=== PATIENT | female | born 1975 | race Hispanic/Latino ===

== ENCOUNTER → 2023-12-12 09:28 | Outpatient (REF) | payer OTHER, SELFPAY ==
[2023-12-12 12:55] LABS: ALT (SGPT) 19 U/L (0-35); AST (SGOT) 17 U/L (14-36); Albumin 3.9 g/dl (3.5-5.0); Alkaline Phosphatase 74 U/L (38-126); Blood Urea Nitrogen 12 mg/dl (7-17); Calcium 9.5 mg/dl (8.4-10.2); Carbon Dioxide 23 mmol/L (22-30); Chloride 104 mmol/L (98-107); Glucose 98 mg/dl (70-99); Potassium 4.2 mmol/L (3.5-5.1); Sodium 134 mmol/L (135-145); Total Bilirubin 0.6 mg/dl (0.2-1.3); Total Protein 6.7 g/dl (6.3-8.2); eGFR > 60.00
[2023-12-12 12:57] LABS: Glycohemoglobin (HgbA1c) 6.8 % (4.0-5.6)
== END ==
LOC: CLINIC 09:28
PROVIDERS: ATTENDING PHYSICIAN Nurse Practitioner Adult Health
DX: E11.9 Type 2 diabetes mellitus without complications (principal)
CPT/HCPCS: 36415; 80053; 83036

== ENCOUNTER → 2024-03-18 08:30 | Outpatient (REF) | payer OTHER, SELFPAY ==
[2024-03-18 10:31] LABS: Microalbumin, Random Urine 0.9 mg/dl (0.6-1.7); Microalbumin/creatinine Ratio 66.2 mg/g
[2024-03-18 10:38] LABS: ALT (SGPT) 21 U/L (0-35); AST (SGOT) 21 U/L (14-36); Alkaline Phosphatase 72 U/L (38-126); Blood Urea Nitrogen 13 mg/dl (7-17); Calcium 9.1 mg/dl (8.4-10.2); Carbon Dioxide 25 mmol/L (22-30); Chloride 100 mmol/L (98-107); Glucose 95 mg/dl (70-99); Potassium 4.1 mmol/L (3.5-5.1); Sodium 138 mmol/L (135-145); Total Bilirubin 0.5 mg/dl (0.2-1.3); Total Protein 6.5 g/dl (6.3-8.2); eGFR > 60.00
[2024-03-18 12:21] LABS: Glycohemoglobin (HgbA1c) 6.3 % (4.0-5.6)
== END ==
LOC: REG 08:30
PROVIDERS: ATTENDING PHYSICIAN Nurse Practitioner Adult Health
DX: I10 Essential (primary) hypertension (principal); E11.9 Type 2 diabetes mellitus without complications
CPT/HCPCS: 36415; 80053; 82043; 82570; 83036

== ENCOUNTER → 2024-06-19 09:05 | Outpatient (REF) | payer OTHER, SELFPAY ==
[2024-06-19 10:42] LABS: ALT (SGPT) 26 U/L (0-35); AST (SGOT) 23 U/L (14-36); Albumin 4.1 g/dl (3.5-5.0); Alkaline Phosphatase 63 U/L (38-126); Blood Urea Nitrogen 10 mg/dl (7-17); Calcium 8.9 mg/dl (8.4-10.2); Carbon Dioxide 27 mmol/L (22-30); Chloride 97 mmol/L (98-107); Glucose 107 mg/dl (70-99); HDL Cholesterol 40 mg/dl; LDL Cholesterol, Calculated 86 mg/dl; Potassium 3.8 mmol/L (3.5-5.1); Sodium 135 mmol/L (135-145); Total Bilirubin 0.7 mg/dl (0.2-1.3); Total Cholesterol 150 mg/dl (50-199); Total Protein 6.6 g/dl (6.3-8.2); Triglyceride 121 mg/dl (10-149); Very Low Density Lipoprotein 24 mg/dl (0-30); eGFR > 60.00
[2024-06-19 11:52] LABS: Glycohemoglobin (HgbA1c) 6.9 % (4.0-5.6)
== END ==
LOC: CLINIC 09:05
PROVIDERS: ATTENDING PHYSICIAN Nurse Practitioner Adult Health
DX: E11.9 Type 2 diabetes mellitus without complications (principal)
CPT/HCPCS: 80053; 80061; 83036

== ENCOUNTER → 2024-09-16 08:07 | Outpatient (REF) | payer OTHER, SELFPAY ==
[2024-09-16 09:31] LABS: ALT (SGPT) 30 U/L (0-35); AST (SGOT) 22 U/L (14-36); Albumin 4.1 g/dl (3.5-5.0); Alkaline Phosphatase 83 U/L (38-126); Blood Urea Nitrogen 15 mg/dl (7-17); Carbon Dioxide 24 mmol/L (22-30); Chloride 99 mmol/L (98-107); Glucose 141 mg/dl (70-99); Potassium 4.4 mmol/L (3.5-5.1); Sodium 134 mmol/L (135-145); Total Bilirubin 0.6 mg/dl (0.2-1.3); Total Protein 6.8 g/dl (6.3-8.2); eGFR > 60.00
[2024-09-16 10:47] LABS: Glycohemoglobin (HgbA1c) 7.3 % (4.0-5.6)
[2024-09-16 11:53] LABS: Calcium 9.7 mg/dl (8.4-10.2)
== END ==
LOC: CLINIC 08:07
PROVIDERS: ATTENDING PHYSICIAN Nurse Practitioner Adult Health
DX: I10 Essential (primary) hypertension (principal); E11.9 Type 2 diabetes mellitus without complications
CPT/HCPCS: 36415; 80053; 83036

== ENCOUNTER → 2024-12-25 07:24 | Outpatient (REF) | payer OTHER, SELFPAY ==
[2024-12-25 09:18] LABS: ALT (SGPT) 19 U/L (0-35); AST (SGOT) 16 U/L (14-36); Albumin 3.9 g/dl (3.5-5.0); Alkaline Phosphatase 67 U/L (38-126); Blood Urea Nitrogen 10 mg/dl (7-17); Carbon Dioxide 25 mmol/L (22-30); Chloride 105 mmol/L (98-107); Glucose 116 mg/dl (70-99); Potassium 4.2 mmol/L (3.5-5.1); Sodium 137 mmol/L (135-145); Total Bilirubin 0.7 mg/dl (0.2-1.3); Total Protein 6.5 g/dl (6.3-8.2); eGFR > 60.00
[2024-12-25 09:38] LABS: Microalbumin, Random Urine 1.3 mg/dl (0.6-1.7); Microalbumin/creatinine Ratio 14.7 mg/g
[2024-12-25 12:37] LABS: Glycohemoglobin (HgbA1c) 6.9 % (4.0-5.6)
== END ==
LOC: REG 07:24
PROVIDERS: ATTENDING PHYSICIAN Nurse Practitioner Adult Health
DX: E11.9 Type 2 diabetes mellitus without complications (principal)
CPT/HCPCS: 80053; 82043; 82570; 83036

== ENCOUNTER → 2025-04-02 07:12 | Outpatient (REF) | payer OTHER, SELFPAY ==
[2025-04-02 08:40] LABS: ALT (SGPT) 22 U/L (0-35); AST (SGOT) 16 U/L (14-36); Albumin 4.2 g/dl (3.5-5.0); Alkaline Phosphatase 74 U/L (38-126); Blood Urea Nitrogen 14 mg/dl (7-17); Calcium 9.3 mg/dl (8.4-10.2); Carbon Dioxide 26 mmol/L (22-30); Chloride 99 mmol/L (98-107); Glucose 128 mg/dl (70-99); Potassium 4.2 mmol/L (3.5-5.1); Sodium 133 mmol/L (135-145); Total Protein 6.9 g/dl (6.3-8.2); eGFR > 60.00
[2025-04-02 08:51] LABS: Microalb - Urine Creatinine 22.000 mg/dl
[2025-04-02 09:08] LABS: Microalbumin, Random Urine < 0.6 mg/dl (0.6-1.7)
[2025-04-02 09:29] LABS: Glycohemoglobin (HgbA1c) 6.8 % (4.0-5.6)
== END ==
LOC: CLINIC 07:12
PROVIDERS: ATTENDING PHYSICIAN Nurse Practitioner Adult Health
DX: E11.9 Type 2 diabetes mellitus without complications (principal)
CPT/HCPCS: 36415; 80053; 82043; 82570; 83036